=== PATIENT | female | born 1975 | race Caucasian/White ===

== ENCOUNTER 2017-07-11 14:46 | Emergency (ER) | payer OTHER ==
[2017-07-11 14:51] VITALS: BP 174/84; BMI 36.0
--- NOTE | 2017-07-11 16:33 | DR.GENAD ---
HPI - PCP Primary Care Physician: JUANITA - HPI Comment HPI Comment: WORSE TODAY. NO FEVER. - Complaint/Symptoms Chief Complaint Doctors Comments: EXPOSE TO STD. VAGINAL PAIN AND ITCHING WITH DYSURIA AND FREQUENCY TIMES ONE WEEK. Chief Complaint:: PATIENT STATED THAT SHE IS HAVING BODY ACHES, FEVER, VAGINAL PAIN, FREQUENT URINATION AND PAIN. PATIENT IS WORRIED ABOUT STD. - Nurses notes reviewed Nurses Notes Review: Yes - Source History Provided: Patient - Mode of Arrival Mode of Arrival: Ambulatory - Timing Onset of Chief Complaint: 07/04/17 Came on: Suddenly - Duration Duration: Constant Duration: Days - Severity Severity: Moderate PMH - PMH Past Medical History: Yes Past Medical History: Asthma, Hypertension Past Surgical History: Yes Surgical History: Cholecystectomy - Family History History of Family Medical Conditions: Yes Family Medical History: Diabetes Mellitus, Cancer, Coronary Artery Disease, Hypertension - Social History Does patient currently use any type of tobacco product: Yes Have you used tobacco products in the last 12 months: Yes Type of Tobacco Use: Cigarettes Does any household member use tobacco: No Alcohol Use: None Do you use any recreational Drugs:: No Lives With: Family Lives Where: Home - infectious screening In the last 2 months have you had wt loss of >10#?: NO Have you had fever, night sweats or hemotysis?: No Have you traveled outside the country in the last 6 months?: No Isolation: Standard ROS - Review of Systems Constitutional: No Symptoms Reported Eyes: No Symptoms Reported ENTM: No Symptoms Reported Respiratoy: No Symptoms Reported Cardiovascular: No Symptoms Reported Gastrointestinal/Abdominal: No Symptoms Reported Genitourinary: Dysuria, Frequency, Pain, Other (VAGINAL PAIN.) Neurological: No Symptoms Reported Musculoskeletal: No Symptoms Reported Integumentary: No Symptoms Reported Hematologic/Lymphatic: No Symptoms Reported Endocrine: No Symptoms Reported All Other Systems: Reviewed and Negative PE - Vital Signs Vitals: Temperature 98.4 F Pulse Rate 100 Respiratory Rate 18 Blood Pressure 174/84 O2 Sat by Pulse Oximetry 97 - General Limitations: No Limitations General Appearance: Alert - Head Head Exam: Normal Inspection - Eyes Eye exam: Normal Appearance - ENT ENT Exam: Normal External Ear Exam External Ear Exam: Normal External Inspection TM/Canal Exam: Bilateral Normal Nose Exam: Normal Nose Exam Mouth Exam: Normal Inspection Throat Exam: Normal Inspection - Neck Neck Exam: Trachea Midline - Chest Chest Inspection: Symmetric Chest Wall Rise - Respiratory Respiratory Exam: Normal Lung Sounds Bilat Respiratory Exam: Bilateral Clear to Auscultation - Cardiovascular Cardiovascular Exam: Regular Rate, Normal Rhythm, Normal Heart Sounds - Abdominal Exam Abdominal Exam: Normal Bowel Sounds, Soft. negative: Tenderness - Extremities Extremities Exam: Normal Inspection - Back Back Exam: Normal Inspection - Neurologic Neurological Exam: Alert, Oriented X3 - Psychiatric Psychiatric Exam: Normal Affect, Normal Mood - Skin Skin Exam: Normal Color MDM - Differential Diagnosis Differential Diagnosis: STD EXPOSURE, UTI Course - Treatment Treatment: SEE ORDERS. - Education/Counseling Education/Counseling: Patient, Education Educated On: Diagnosis, Needs for Follow Up ROR - Labs Reviewed Laboratory Results Reviewed?: Yes Laboratory: Specimen Type Clean catch urine 07/11/17 16:35 Urine Color Yellow (YELLOW) 07/11/17 16:35 Urine Appearance Clear (CLEAR) 07/11/17 16:35 Urine pH 7.0 (5.0 - 8.0) 07/11/17 16:35 Ur Specific [place] 1.005 (1.000-1.030) 07/11/17 16:35 Urine Protein Negative (NEGATIVE) 07/11/17 16:35 Urine Glucose (UA) Negative (NEGATIVE) 07/11/17 16:35 Urine Ketones Negative (NEGATIVE) 07/11/17 16:35 Urine Occult Blood Negative (NEGATIVE) 07/11/17 16:35 Urine Nitrite Negative (NEGATIVE) 07/11/17 16:35 Urine Bilirubin Negative (NEGATIVE) 07/11/17 16:35 Urine Urobilinogen Normal (NORMAL) 07/11/17 16:35 Ur Leukocyte Esterase Negative (NEGATIVE) 07/11/17 16:35 Urine RBC None seen /HPF (NEGATIVE) 07/11/17 16:35 Urine WBC None seen /HPF (NEGATIVE) 07/11/17 16:35 Ur Squamous Epith Cells Few /HPF (NEGATIVE) 07/11/17 16:35 Urine Bacteria Trace /HPF (NEGATIVE) 07/11/17 16:35 Ur Culture Indicated? No/not indicated 07/11/17 16:35 Ur C. trach DNA (PCR) Not detected (NOT DETECT) 07/11/17 16:35 U N.gonorrhoeae DNA PCR Not detected (NOT DETECT) 07/11/17 16:35 - Diagnosis Discharge Problem: Cystitis, STD exposure - Discharge Plan Condition: Stable Prescriptions: Fluconazole [DIFLUCAN TAB 150 MG *] 150 mg PO ONCE #1 tab - Follow ups/Referrals Follow ups/Referrals: GREER GRANT [Primary Care Provider] - 3 days - Instructions Instructions: Vaginitis, [id number], Dysuria, Chlamydia Test Additional Instructions: RETURN TO ED IF WORSE. HISTORY STD EXPOSURE.
[2017-07-11 16:51] LABS: BILIRUBIN,URINE NEGATIVE (NEGATIVE); BLOOD/HEMOGLOBIN,URINE NEGATIVE (NEGATIVE); GLUCOSE, URINE NEGATIVE (NEGATIVE); KETONES,URINE NEGATIVE (NEGATIVE); LEUKOCYTE ESTERASE ,URINE NEGATIVE (NEGATIVE); NITRITES,URINE NEGATIVE (NEGATIVE); PROTEIN,URINE NEGATIVE (NEGATIVE); UROBILINOGEN,URINE NORMAL (NORMAL)
[2017-07-11 17:04] LABS: APPEARANCE,URINE CLEAR (CLEAR); COLOR,URINE YELLOW (YELLOW)
[2017-07-11 17:15] LABS: BACTERIA,URINE TRACE /HPF (NEGATIVE); RBC,URINE NONE SEEN /HPF (NEGATIVE); SQUAMOUS EPITHELIAL CELL,UR FEW /HPF (NEGATIVE)
[2017-07-11] MEDS ORDERED: ROCEPHIN VIAL 250 MG IM ONE (18:08)
[2017-07-11] MEDS ORDERED: ZITHROMAX TAB 250 MG PO ONE ×2 (18:09→18:11)
[2017-07-11] MEDS ORDERED: ROCEPHIN VIAL 250 MG ONE (18:11)
[2017-07-11] MEDS ORDERED: XYLOCAINE 1 % (PLAIN) ONE (18:11)
[2017-07-11 18:41] LABS: CHLAMYDIA TRACH URINE NOT DETECTED (NOT DETECT)
== END 2017-07-11 19:04 | disposition home or self-care (01) ==
LOC: ER 14:53
DX: N30.90 Cystitis, unspecified without hematuria (principal); Z20.2 Contact with and (suspected) exposure to infections with a predominantly sexual mode of transmission
CPT/HCPCS: 81001; 87491; 87591; 96372; 99282; Q0144; J0696; J2001

== ENCOUNTER → 2017-08-13 | Outpatient (CLI) | payer OTHER ==
--- NOTE | 2017-08-13 12:50 | MRI ---
STUDY: MRI OF THE BRAIN WITHOUT AND WITH GADOLINIUM History: Demyelinating disease of central nervous system, unspecified. Migraines. Urinary incontinen ce. Comparison: None Technique: Multiplanar multi-sequence MRI of the brain was obtained utilizing standard departmental p rotocol. Sagittal and axial T1, axial T2, FLAIR, diffusion (DWI/ADC) images through the brain were pe rformed. 20 cc of Omniscan was administered without reported complication following acquisition of informed wr itten consent. Post gadolinium axial and coronal whole brain images were performed. Findings: Pre gadolinium brain: The sulci, cisterns, and ventricles are age appropriate. There is no evidence o f acute territorial infarction, hemorrhage, mass, mass effect or midline shift. There are no abnormal intra-axial or extra-axial fluid collections. The major intracranial vascular flow voids are intact. Post gadolinium brain: Following the uneventful administration of intravenous gadolinium, there is no evidence of abnormal brain parenchymal or leptomeningeal enhancement. IMPRESSION: 1. No evidence of acute intracranial abnormality. Reported By:
--- NOTE | 2017-08-13 15:26 | MRI ---
STUDY: MRI OF THE CERVICAL SPINE HISTORY: Demyelinating disease of central nervous system, unspecified. Migraines and urinary inconti nence. Comparison: None. Technique: An MRI of the cervical spine including sagittal T1, T2, and T2 STIR, axial T1, and T2 FSE images was performed using standard departmental protocol. 20 cc of Omniscan was administered intrave nously without reported complication following acquisition of informed written consent. Subsequently, sagittal and axial T1 weighted fat saturated images were performed. Findings: Sagittal images: Visualized portions of the posterior fossa are within normal limits. The craniocervical junction is u nremarkable. There is straightening of usual cervical lordosis. Otherwise, vertebral body heights and alignment are within normal limits. Marrow signal is age-appropriate. There is no evidence for fract ure or significant bone marrow edema. There is no significant prevertebral soft tissue swelling. The surrounding paraspinal soft tissues are unremarkable. There is no evidence of cord compression. No i ntrinsic signal abnormalities are identified in the spinal cord itself. Axial images: C2 -- C3: Normal. C3 -- C4: Normal. C4 -- C5: Normal. C5 -- C6: Normal. C6 -- C7: Normal. C7 -- T1: Normal. Post gadolinium spine: Following the uneventful administration of intravenous gadolinium, there is no evidence of abnormal enhancement. IMPRESSION: 1. No evidence of acute cervical spine abnormality. 2. Straightening of the usual cervical lordosis. This finding may be positional or secondary to muscl e spasm. Clinical correlation is recommended. Reported By:
== END ==
LOC: RAD 10:07
PROVIDERS: ATTEND Psychiatry & Neurology Neurology
DX: G37.8 Other specified demyelinating diseases of central nervous system (principal)
CPT/HCPCS: 70553; 72156

== ENCOUNTER → 2017-08-18 | Outpatient (CLI) | payer OTHER ==
--- NOTE | 2017-08-18 13:39 | MRI ---
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 Technique: Routine multiplanar multisequence imaging was performed through the lumbar spine before an d after administration of 20 cc of Omniscan IV. Findings: The lumbar vertebra are well aligned. No fracture or subluxation is seen. There is mild-to- moderate disc space narrowing throughout with diffuse mild disc desiccation which is most prominent L 5-S1. The conus is normal. The bone marrow signal is normal throughout. There is a digb-xj-[id number] b road-based protrusion at L5-S1 lateralizing to the right causing moderate anterolateral dural sac eff acement and mild neuroforaminal narrowing on the right. There is increased signal in the annulus post eriorly at this level. There are moderate hypertrophic changes of the facets throughout with ligament flavum hypertrophy causing diffuse mild spinal stenosis along the lower lumbar region. The paraverte bral soft tissues are normal. There are no pars defects. No enhancing lesion or mass is seen. There i s some minimal fluid in the facet of L4-5 on the left with no pars defects. Impression: Moderate multilevel degenerative disc disease which is most prominent L5-S1 with no acute abnormality seen and specifically, no enhancing lesion or mass identified. Moderate broad-based protrusion at L5-S1 lateralizing to the right with associated small annular tear or fissure posteriorly. 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 Mild synovitis along the facet of L4-5 on the left. Reported By:
--- NOTE | 2017-08-18 16:43 | MRI ---
HISTORY: Demyelinating disease of the central nervous system. Study: MR thoracic spine with and without IV contrast. Comparison: MR cervical spine dated 08/13/2017. Technique: Multiplanar multi-sequence MRI of the thoracic spine was performed both prior to and after the uneventful administration of 20 cc of Omniscan intravenous contrast. Findings: The thoracic spine demonstrates normal alignment with the expected signal characteristics o f the bone marrow. The spinal cord demonstrates normal signal characteristics without abnormal enhan cement on postcontrast imaging. The conus of the cord terminates normally at the level of T12-L1. The re are small subarticular disc protrusions on the left and T5-T6 and T6-T7 without evidence of spinal cord impingement. Otherwise, no significant degenerative disk disease can be identified. IMPRESSION: Small subarticular disc protrusions on the left at T5-T6 and T6-C7 without spinal cord impingement. No abnormal enhancement or evidence of a spinal cord lesion. Reported By:
== END | disposition home or self-care (01) | DRG 60 ==
LOC: RAD 08:09
PROVIDERS: ATTEND Psychiatry & Neurology Neurology
DX: G37.8 Other specified demyelinating diseases of central nervous system (principal); M51.24 Other intervertebral disc displacement, thoracic region; M51.25 Other intervertebral disc displacement, thoracolumbar region; M51.27 Other intervertebral disc displacement, lumbosacral region; M51.37 Other intervertebral disc degeneration, lumbosacral region; M65.88 Other synovitis and tenosynovitis, other site
CPT/HCPCS: 72157; 72158